=== PATIENT | female | born 2005 | race Caucasian/White ===

== ENCOUNTER 2024-02-10 08:50 | Outpatient (CLI) | payer OTHER ==
[2024-02-10] MEDS ORDERED: Iopamidol 370 76% 100 ML VIAL ONE (10:54)
== END 2024-02-10 08:51 | disposition home or self-care (01) ==
LOC: CSHCT 08:50
PROVIDERS: ATTEND Physician Assistant Medical
DX: K52.9 Noninfective gastroenteritis and colitis, unspecified (principal); R10.2 Pelvic and perineal pain; R63.4 Abnormal weight loss; K21.9 Gastro-esophageal reflux disease without esophagitis; K63.9 Disease of intestine, unspecified
CPT/HCPCS: 74177; Q9967